=== PATIENT | female | born 1940 | race Caucasian/White ===

== ENCOUNTER → 2022-05-21 08:00 | Outpatient (CLI) | payer OTHER ==
[~2022-05-21 08:00] MED LIST: CIPRO500 MG PO; PYRIDIUM200 MG PO; ZANTAC300 MG PO
== END | disposition home or self-care (01) ==
LOC: LAB 08:00 → ADM 14:45 → AMB-ENDOS 05-27 14:45 → EDSTATUS 05-27 14:45 → EDBD 05-27 14:45
PROVIDERS: ATTEND Colon & Rectal Surgery
DX: Z03.818 Encounter for observation for suspected exposure to other biological agents ruled out (principal); K57.30 Diverticulosis of large intestine without perforation or abscess without bleeding; R15.9 Full incontinence of feces